=== PATIENT | male | born 1965 | race Caucasian/White ===

== ENCOUNTER 2023-05-31 11:48 | Emergency (ER) | payer BC ==
[2023-05-31] MEDS ORDERED: Lidocaine 1% 10 ML MDV INJECT ONE (11:59)
== END 2023-05-31 12:16 | disposition home or self-care (01) ==
LOC: VM.ED 11:48
DX: S01.01XA Laceration without foreign body of scalp, initial encounter (principal); W20.8XXA Other cause of strike by thrown, projected or falling object, initial encounter
CPT/HCPCS: 12002; 99282; J3490